=== PATIENT | male | born 1985 | race Caucasian/White ===

== ENCOUNTER 2016-09-29 14:17 | Inpatient (IN) | payer OTHER ==
[2016-09-29 15:56] VITALS: BMI 24.2
--- NOTE | 2016-09-29 16:48 | HP ---
CIWA Score - CIWA Score Nausea/Vomitin-Mild Nausea/No Vomiting Muscle Tremors: 4-Moderate,w/Arms Extend Anxiety: 4-Mod. Anxious/Guarded Agitation: 4-Moderately Restless Paroxysmal Sweats: 3 Orientation: 0-Oriented Tacttile Disturbances: 0-None Auditory Disturbances: 0-None Visual Disturbances: 0-None Headache: 1-Very Mild CIWA-Ar Total Score: 17 Admission ROS BHS - HPI Chief Complaint: I need to stop using. Allergies/Adverse Reactions: Allergies Allergy/AdvReac Type Severity Reaction Status Date / Time No Known Allergies Allergy Verified 09/29/16 16:35 History of Present Illness: pt is a 31yr old male with a history of benzodiazapine dependence seeking detox for treatment. pt is also on a mmtp program received 60mg last dose received today. pending verification Exam Limitations: No Limitations - Ebola screening Have you traveled outside of the country in the last 21 days: No Have you had contact with anyone from an Ebola affected area: No Have you been sick,other than usual withdrawal symptoms: No Do you have a fever: No - Review of Systems Constitutional: Chills, Diaphoresis, Loss of Appetite, Night Sweats, Changes in sleep, Unintentional Wgt. Loss EENT: reports: Tearing, Nose Congestion Respiratory: reports: No Symptoms reported Cardiac: reports: No Symptoms Reported GI: reports: Constipated, Nausea, Poor Fluid Intake, Indigestion : reports: No Symptoms Reported Musculoskeletal: reports: No Symptoms Reported, Back Pain, Joint Pain Integumentary: reports: Flushing, Sweating Neuro: reports: Headache, Seizure (last seizure a year ago.), Tingling, Tremors , Dizziness Endocrine: reports: Excessive Sweating, Flushing, Intolerance to Cold, Intolerance to Heat Hematology: reports: No Symptoms Reported Psychiatric: reports: Judgement Intact, Mood/Affect Appropiate, Orientated x3, Agitated, Anxious Other Systems: Reviewed and Negative Patient History - Patient Medical History Hx Anemia: No Hx Asthma: No Hx Chronic Obstructive Pulmonary Disease (COPD): No Hx Cancer: No Hx Cardiac Disorders: No Hx Congestive Heart Failure: No Hx Hypertension: No Hx Hypercholesterolemia: No Hx Pacemaker: No HX Cerebrovascular Accident: No Hx Seizures: Yes (over a year ago) Hx Dementia: No Hx Diabetes: No Hx Gastrointestinal Disorders: No Hx Liver Disease: No Hx Genitourinary Disorders: No Hx Sexually Transmitted Disorders: No Hx Renal Disease (ESRD): No Hx Thyroid Disease: No Hx Human Immunodeficiency Virus (HIV): No (negative) Hx Hepatitis C: No (negative) Hx Depression: No Hx Suicide Attempt: No (denies) Hx Bipolar Disorder: Yes Hx Schizophrenia: No - Patient Surgical History Past Surgical History: Yes Other Surgical History: tonsilectomy - PPD History Previous Implant?: Yes Documented Results: Negative w/o proof PPD to be Administered?: Yes - Reproductive History Patient is a Female of Child Bearing Age (11 -55 yrs old): No - Smoking Cessation Smoking history: Current every day smoker Have you smoked in the past 12 months: Yes Aproximately how many cigarettes per day: 10 Hx Chewing Tobacco Use: No Initiated information on smoking cessation: Yes 'Breaking Loose' booklet given: 09/29/16 - Substance & Tx. History Hx Alcohol Use: No Hx Substance Use: Yes Substance Use Type: Tranquilizers Hx Substance Use Treatment: Yes - Substances Abused Xanax Route: Oral Frequency: Daily Amount used: 8 mg. Age of first use: 26 Date of Last Use: 09/29/16 Family Disease History - Family Disease History Family Disease History: Diabetes: Grandparent, [place]: Father Admission Physical Exam S - Vital Signs Vital Signs: Vital Signs - 24 hr 09/29/16 15:54 Temperature 97.1 F L Pulse Rate 92 H Respiratory 18 Rate Blood Pressure 117/73 - Physical General Appearance: Yes: Appropriately Dressed, Moderate Distress, Thin, Tremorous, Irritable, Sweating, Anxious HEENTM: Yes: Normal Voice, Nasal Congestion, Rhinorrhea Respiratory: Yes: Lungs Clear, Normal Breath Sounds, No Respiratory Distress Neck: Yes: No masses,lesions,Nodules Breast: Yes: Within Normal Limits Cardiology: Yes: Regular Rhythm, Regular Rate, S1, S2 Abdominal: Yes: Normal Bowel Sounds, Non Tender, Soft Genitourinary: Yes: Within Normal Limits Back: Yes: Normal Inspection Musculoskeletal: Yes: full range of Motion Extremities: Yes: Normal Capillary Refill, Normal Inspection, Non-Tender, Tremors Neurological: Yes: Fully Oriented, Alert, Normal Response Integumentary: Yes: Normal Color, Diaphoresis, Track [place] Lymphatic: Yes: Within Normal Limits - Diagnostic (1) Sedative, hypnotic or anxiolytic dependence with withdrawal, uncomplicated Current Visit: Yes Status: Chronic (2) Methadone maintenance therapy patient Current Visit: Yes Status: Chronic Comment: last dose reiceved today 60mg pending verification (3) Nicotine dependence Current Visit: Yes Status: Chronic Qualifiers: Nicotine product type: cigarettes Substance use status: uncomplicated Qualified Code(s): F17.210 - Nicotine dependence, cigarettes, uncomplicated Cleared for Admission [facility] - Detox or Rehab [facility] Level of Care: Medically Managed Detox Regimen/Protocol: Valium S Breath Alcohol Content Breath Alcohol Content: 0 Urine Drug Screen - Results Drug Screen Negative: No Urine Drug Screen Results: CAROLYN-Cocaine, OPI-Opiates, BAR-Barbiturates, BZO- Benzodiazepines, MTD-Methadone, TCA-Tricyclic Antidepress, OXY-Oxycodone
[2016-09-29] MEDS ORDERED: MAGNESIUM CITRATE 300 ML BOTTLE PO PRN (16:57)
[2016-09-29] MEDS ORDERED: IBUPROFEN 400 MG TABLET (FP) PO PRN (16:57)
[2016-09-29] MEDS ORDERED: MENTHOL/PHENOL 1 EACH UD MM PRN (16:57)
[2016-09-29] MEDS ORDERED: MAGNESIUM HYDROX 2400MG/30ML ORAL SUSPENSION 30 ML CUP PO PRN (16:57)
[2016-09-29] MEDS ORDERED: LOPERAMIDE HCL 2 MG CAPSULE PO PRN (16:57)
[2016-09-29] MEDS ORDERED: P-EPHED 60MG/TRIPROLIDI 2.5MG TABLET PO PRN (16:57)
[2016-09-29] MEDS ORDERED: guaiFENesin/D-METHORPHAN HB 10 ML UNIT-DOSE CUPS PO PRN (16:57)
[2016-09-29] MEDS ORDERED: hydrOXYzine PAMOATE 50 MG CAPSULE (FP) PO PRN (16:57)
[2016-09-29] MEDS ORDERED: MAG HYDROX/AL HYDROX/SIMETH 30 ML UNIT-DOSE CUP PO PRN (16:57)
[2016-09-29] MEDS ORDERED: NICOTINE POLACRILEX 4 MG GUM BC PRN (16:57)
[2016-09-29] MEDS ORDERED: ACETAMINOPHEN 325 MG TABLET (FP) PO PRN (16:57)
[2016-09-29] MEDS ORDERED: diazePAM 5 MG TABLET PO ONE (18:00)
[2016-09-29] MEDS: THIAMINE HCL 100 MG TABLET (FP) PO SCH (22:26)
[2016-09-29] MEDS: diazePAM 5 MG TABLET PO SCH (22:26)
[2016-09-30 03:04] LABS: URINE APPEARANCE SLCLOUDY; URINE BILIRUBIN NEGATIVE (NEGATIVE); URINE BLOOD NEGATIVE (NEGATIVE); URINE COLOR AMBER; URINE GLUCOSE (UA) NEGATIVE (NEGATIVE); URINE KETONE TRACE (NEGATIVE); URINE LEUK ESTERASE NEGATIVE (NEGATIVE); URINE NITRITE NEGATIVE (NEGATIVE); URINE UROBILINOGEN NEGATIVE E.U./dl (0.2-1.0)
[2016-09-30 03:30] LABS: URINE PROTEIN 1+ (NEGATIVE)
[2016-09-30 03:41] LABS: CALCIUM OXALATE CRYSTALS FEW /hpf (NONE SEEN); URINE HYALINE CAST 16 /lpf; URINE MUCUS MANY; URINE RBC 1 /hpf (0-3); URINE WBC 2 /hpf (3-5)
[2016-09-30] MEDS: diazePAM 5 MG TABLET PO SCH ×3 (05:50→22:07)
[2016-09-30] MEDS ORDERED: METHADONE HCL 10 MG TABLET PO ONE (10:03)
[2016-09-30] MEDS: PRENATAL VITAMINS W/ FOLIC ACID TABLET (FP) PO SCH (10:04)
[2016-09-30] MEDS: diazePAM 5 MG TABLET PO PRN (10:04)
[2016-09-30] MEDS: NICOTINE 21 MG/24 HOURS TOPICAL PATCH TD SCH (10:07)
[2016-09-30] MEDS ORDERED: METHADONE 40 MG, METHADONE 20 MG PO ONE (10:45)
[2016-09-30] MEDS ORDERED: METHADONE HCL 10 MG TABLET ONE (11:06)
[2016-09-30] MEDS ORDERED: METHADONE HCL 40 MG DISPERSABLE TABLET ONE (11:07)
[2016-09-30 11:13] LABS: ANION GAP 8 (8-16); CALCIUM 9.1 mg/dL (8.5-10.1); CO2 28 mmol/L (21-32); GLUCOSE,RANDOM 95 mg/dL (74-106); MCH 30.3 pg (25.7-33.7); MCHC 34.3 g/dl (32.0-35.9); MEAN CELL VOLUME 88.5 fl (80-96); MEAN PLT VOLUME 7.9 fl (7.5-11.1); PLATELET COUNT 238 K/MM3 (134-434); RDW 12.7 % (11.9-15.9); WHITE BLOOD COUNT 4.1 K/mm3 (4.0-10.0)
--- NOTE | 2016-09-30 11:14 | PN ---
S CIWA - CIWA Score Nausea/Vomitin Muscle Tremors: 3 Anxiety: 3 Agitation: 2 Paroxysmal Sweats: 1-Minimal Palms Moist Orientation: 0-Oriented Tacttile Disturbances: 1-Very Mild Itch/Numbness Auditory Disturbances: 1-Very Mild Visual Disturbances: 1-Very Mild Sensitivity Headache: 2-Mild CIWA-Ar Total Score: 17 BHS Progress Note (SOAP) Subjective: ALERT,IRRITABLE,ANXIOUS,INTERRUPTED SLEEP,TREMOR,PAIN IN THE BODY AND BACK Objective: 09/30/16 11:14 Vital Signs Temperature 97.7 F 09/30/16 09:40 Pulse Rate 75 09/30/16 09:40 Respiratory Rate 16 09/30/16 09:40 Blood Pressure 128/74 09/30/16 09:40 O2 Sat by Pulse Oximetry (%) EKG NSR WITH SINUS ARRHYTHMIA Laboratory Last Values Urine Color Clair 09/29/16 23:06 Urine Appearance Slcloudy 09/29/16 23:06 Urine pH 5.0 (5.0-8.0) 09/29/16 23:06 Ur Specific [place] 1.030 (1.001-1.035) 09/29/16 23:06 Urine Protein 1+ (NEGATIVE) H 09/29/16 23:06 Urine Glucose (UA) Negative (NEGATIVE) 09/29/16 23:06 Urine Ketones Trace (NEGATIVE) H 09/29/16 23:06 Urine Blood Negative (NEGATIVE) 09/29/16 23:06 Urine Nitrite Negative (NEGATIVE) 09/29/16 23:06 Urine Bilirubin Negative (NEGATIVE) 09/29/16 23:06 Urine Urobilinogen Negative E.U./dl (0.2-1.0) 09/29/16 23:06 Ur Leukocyte Esterase Negative (NEGATIVE) 09/29/16 23:06 Urine RBC 1 /hpf (0-3) 09/29/16 23:06 Urine WBC 2 /hpf (3-5) 09/29/16 23:06 Ur Epithelial Cells Rare /hpf (FEW) 09/29/16 23:06 Calcium Oxalate Crystal Few /hpf (NONE SEEN) 09/29/16 23:06 Hyaline Casts 16 /lpf 09/29/16 23:06 Urine Mucus Many 09/29/16 23:06 LABS PENDING Assessment: 09/30/16 11:15 WITHDRAWAL SYMPTOM Plan: CONTINUE DETOX
[2016-09-30 11:16] LABS: ALK PHOS 59 U/L (45-117); BILIRUBIN,TOTAL 0.3 mg/dL (0.2-1.0); CREATININE 0.9 mg/dL (0.7-1.3); SGOT/AST 18 U/L (15-37); SGPT/ALT 25 U/L (12-78); TOT PROT 6.8 g/dl (6.4-8.2)
[2016-09-30 12:52] LABS: HIV 1 & 2 AB NEGATIVE; HIV 1 AGp24 NEGATIVE
--- NOTE | 2016-09-30 13:39 | EKG ---
Test Reason : Blood Pressure : / mmHG Vent. Rate : 062 BPM Atrial Rate : 062 BPM P-R Int : 172 ms QRS Dur : 098 ms QT Int : 442 ms P-R-T Axes : 060 063 061 degrees QTc Int : 448 ms NORMAL SINUS RHYTHM WITH SINUS ARRHYTHMIA INCOMPLETE RBBB NO PREVIOUS ECGS AVAILABLE Confirmed by DALTON DOSS MD ([id number]) on 09/30/2016 1:38:49 PM Referred By: Confirmed By:DALTON DOSS MD
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
--- NOTE | 2016-09-30 14:40 | PN ---
S Progress Note Note: Pt. claims that he takes gabapentin 600mg tid, however outside pharmacy shows gabapentin 100mg tid. We'll start him on 300mg bid & monitor
[2016-09-30] MEDS ORDERED: GABAPENTIN 300 MG CAPSULE (FP) PO ONE (14:45)
[2016-09-30] MEDS: QUEtiapine FUMARATE 50 MG TABLET PO SCH (22:07)
[2016-09-30] MEDS: THIAMINE HCL 100 MG TABLET (FP) PO SCH (22:07)
[2016-09-30] MEDS: GABAPENTIN 300 MG CAPSULE (FP) PO SCH (22:08)
[2016-10-01] MEDS ORDERED: METHADONE HCL 10 MG TABLET ONE (04:22)
[2016-10-01] MEDS ORDERED: METHADONE HCL 40 MG DISPERSABLE TABLET ONE (04:23)
[2016-10-01] MEDS: METHADONE 40 MG, METHADONE 20 MG PO SCH (05:13)
[2016-10-01] MEDS ORDERED: METHADONE HCL 10 MG TABLET PO SCH (06:00)
[2016-10-01] MEDS: PRENATAL VITAMINS W/ FOLIC ACID TABLET (FP) PO SCH (10:07)
[2016-10-01] MEDS: FLUoxetine HCL 20 MG CAPSULE (FP) PO SCH (10:07)
[2016-10-01] MEDS: diazePAM 5 MG TABLET PO SCH ×2 (10:07→22:38)
[2016-10-01] MEDS: GABAPENTIN 300 MG CAPSULE (FP) PO SCH ×2 (10:07→22:38)
[2016-10-01] MEDS: NICOTINE 21 MG/24 HOURS TOPICAL PATCH TD SCH (10:08)
--- NOTE | 2016-10-01 13:45 | PN ---
[facility] CIWA - CIWA Score Nausea/Vomitin-No Nausea/No Vomiting Muscle Tremors: 3 Anxiety: 3 Agitation: 4-Moderately Restless Paroxysmal Sweats: 3 Orientation: 0-Oriented Tacttile Disturbances: 0-None Auditory Disturbances: 0-None Visual Disturbances: 0-None Headache: 0-None Present CIWA-Ar Total Score: 13 BHS Progress Note (SOAP) Subjective: anxiety,tremors,sweating,interrupted sleep,restless Objective: 10/01/16 13:44 Vital Signs - 8 hr 10/01/16 10/01/16 06:00 10:00 Temperature 97.2 F L 97.7 F Pulse Rate 64 70 Respiratory 18 18 Rate Blood Pressure 102/61 127/71 Laboratory Tests 09/29/16 09/30/16 09/30/16 23:06 07:50 07:50 WBC 4.1 RBC 4.22 Hgb 12.8 Hct 37.3 MCV 88.5 MCHC 34.3 RDW 12.7 Plt Count 238 MPV 7.9 Sodium Potassium Chloride Carbon Dioxide Anion Gap BUN Creatinine Creat Clearance w eGFR Random Glucose Calcium Total Bilirubin AST ALT Alkaline Phosphatase Total Protein Albumin Urine Color Clair Urine Appearance Slcloudy Urine pH 5.0 Ur Specific [place] 1.030 Urine Protein 1+ H Urine Glucose (UA) Negative Urine Ketones Trace H Urine Blood Negative Urine Nitrite Negative Urine Bilirubin Negative Urine Urobilinogen Negative Ur Leukocyte Esterase Negative Urine RBC 1 Urine WBC 2 Ur Epithelial Cells Rare Calcium Oxalate Crystal Few Hyaline Casts 16 Urine Mucus Many RPR Titer HIV 1&2 Antibody Screen Negative HIV P24 Antigen Negative 09/30/16 09/30/16 07:50 07:50 WBC RBC Hgb Hct MCV MCHC RDW Plt Count MPV Sodium 142 Potassium 4.1 Chloride 106 Carbon Dioxide 28 Anion Gap 8 BUN 13 Creatinine 0.9 Creat Clearance w eGFR > 60 Random Glucose 95 Calcium 9.1 Total Bilirubin 0.3 AST 18 ALT 25 Alkaline Phosphatase 59 Total Protein 6.8 Albumin 4.0 Urine Color Urine Appearance Urine pH Ur Specific [place] Urine Protein Urine Glucose (UA) Urine Ketones Urine Blood Urine Nitrite Urine Bilirubin Urine Urobilinogen Ur Leukocyte Esterase Urine RBC Urine WBC Ur Epithelial Cells Calcium Oxalate Crystal Hyaline Casts Urine Mucus RPR Titer Nonreactive HIV 1&2 Antibody Screen HIV P24 Antigen labs noted Assessment: 10/01/16 13:44 withdrawal sx. Plan: continue detox
[2016-10-01] MEDS: diazePAM 5 MG TABLET PO PRN ×2 (13:47→19:23)
[2016-10-01] MEDS ORDERED: diphenhydrAMINE HCL 25 MG CAPSULE (FP) PO ONE (20:48)
[2016-10-01] MEDS: QUEtiapine FUMARATE 50 MG TABLET PO SCH (22:38)
[2016-10-01] MEDS: THIAMINE HCL 100 MG TABLET (FP) PO SCH (22:38)
[2016-10-01] MEDS: diphenhydrAMINE HCL 50 MG CAPSULE PO PRN (22:39)
[2016-10-02] MEDS ORDERED: METHADONE HCL 10 MG TABLET ONE (04:51)
[2016-10-02] MEDS ORDERED: METHADONE HCL 40 MG DISPERSABLE TABLET ONE (04:51)
[2016-10-02] MEDS: METHADONE 40 MG, METHADONE 20 MG PO SCH (05:16)
[2016-10-02] MEDS: diazePAM 5 MG TABLET PO PRN ×2 (08:27→16:57)
[2016-10-02] MEDS: NICOTINE 21 MG/24 HOURS TOPICAL PATCH TD SCH (10:15)
[2016-10-02] MEDS: PRENATAL VITAMINS W/ FOLIC ACID TABLET (FP) PO SCH (10:15)
[2016-10-02] MEDS: FLUoxetine HCL 20 MG CAPSULE (FP) PO SCH (10:15)
[2016-10-02] MEDS: diazePAM 5 MG TABLET PO SCH ×2 (10:15→22:24)
[2016-10-02] MEDS: GABAPENTIN 300 MG CAPSULE (FP) PO SCH ×2 (10:15→22:24)
--- NOTE | 2016-10-02 10:15 | PN ---
BHS Progress Note (SOAP) Subjective: agitation anxiety sweats Objective: 10/02/16 10:12 Vital Signs Temperature 97.9 F 10/02/16 10:00 Pulse Rate 76 10/02/16 10:00 Respiratory Rate 18 10/02/16 10:00 Blood Pressure 114/76 10/02/16 10:00 O2 Sat by Pulse Oximetry (%) awake/alert ambulating no acute distress Assessment: 10/02/16 10:14 withdrawal sx Plan: continue detox increase fluids d/c in am
[2016-10-02] MEDS: CLOTRIMAZOLE/BETAMET DIPROP TOPICAL CREAM 45 GM TUBE TP SCH ×2 (13:45→23:32)
[2016-10-02] MEDS: QUEtiapine FUMARATE 50 MG TABLET PO SCH (22:24)
[2016-10-02] MEDS: THIAMINE HCL 100 MG TABLET (FP) PO SCH (22:24)
[2016-10-02] MEDS: diphenhydrAMINE HCL 50 MG CAPSULE PO PRN (22:25)
[2016-10-03] MEDS ORDERED: METHADONE HCL 10 MG TABLET ONE (05:10)
[2016-10-03] MEDS ORDERED: METHADONE HCL 40 MG DISPERSABLE TABLET ONE (05:11)
[2016-10-03] MEDS: METHADONE 40 MG, METHADONE 20 MG PO SCH (05:27)
--- NOTE | 2016-10-03 09:10 | DS ---
[facility] Detox Discharge Summary Admission Date: 09/29/16 Discharge Date: 10/03/16 - History Present History: Cocaine Dependence, Opioid Dependence, Sedative Dependence - Physical Exam Results Vital Signs: Vital Signs Temperature 97.7 F 10/03/16 06:12 Pulse Rate 68 10/03/16 06:12 Respiratory Rate 18 10/03/16 06:12 Blood Pressure 110/69 10/03/16 06:12 O2 Sat by Pulse Oximetry (%) - Treatment Hospital Course: Detox Protocol Followed, Detoxed Safely, Responded well, Discharged Condition Good - Medication Discharge Medications: Ambulatory Orders Fluoxetine HCl [Prozac -] 20 mg PO DAILY 09/29/16 Fluoxetine HCl [Prozac] 20 mg PO DAILY #30 capsule 09/30/16 Quetiapine Fumarate [Seroquel -] 50 mg PO HS #30 tablet 09/30/16 - Diagnosis (1) Cocaine abuse Current Visit: Yes Status: Chronic (2) Nicotine dependence Current Visit: Yes Status: Chronic Qualifiers: Nicotine product type: cigarettes Substance use status: uncomplicated Qualified Code(s): F17.210 - Nicotine dependence, cigarettes, uncomplicated (3) Opioid dependence on agonist therapy Current Visit: Yes Status: Acute (4) Sedative, hypnotic or anxiolytic dependence with withdrawal, uncomplicated Current Visit: Yes Status: Chronic - AMA Did Patient Leave Against Medical Advice: No
[2016-10-03] MEDS ORDERED: diazePAM 5 MG TABLET PO SCH (10:00)
[2016-10-03 10:03] VITALS: BP 131/68; PULSE 77; TEMP 97.9
[2016-10-03] MEDS: PRENATAL VITAMINS W/ FOLIC ACID TABLET (FP) PO SCH (10:33)
[2016-10-03] MEDS: FLUoxetine HCL 20 MG CAPSULE (FP) PO SCH (10:33)
[2016-10-03] MEDS: GABAPENTIN 300 MG CAPSULE (FP) PO SCH (10:33)
[2016-10-03] MEDS: CLOTRIMAZOLE/BETAMET DIPROP TOPICAL CREAM 45 GM TUBE TP SCH (10:38)
[2016-10-03] MEDS: NICOTINE 21 MG/24 HOURS TOPICAL PATCH TD SCH (10:38)
== END 2016-10-03 12:38 | disposition other institution (70) | DRG 773 ==
LOC: YASAS 14:17 → Y6N 17:44
PROVIDERS: ADMIT Internal Medicine; ATTEND Internal Medicine
PROC: HZ2ZZZZ Detoxification Services for Substance Abuse Treatment (ICD-10-PCS; principal; 2016-10-03)
DX: F13.230 Sedative, hypnotic or anxiolytic dependence with withdrawal, uncomplicated (principal); F11.20 Opioid dependence, uncomplicated; F14.10 Cocaine abuse, uncomplicated; F17.210 Nicotine dependence, cigarettes, uncomplicated
CPT/HCPCS: 36415; 80053; 81003; 81015; 85027; 86593; 87389; 93005; 93010

== ENCOUNTER 2016-10-03 12:51 | Inpatient (IN) | payer OTHER ==
[2016-10-03] MEDS ORDERED: diphenhydrAMINE HCL 50 MG CAPSULE PO PRN (13:13)
[2016-10-03] MEDS ORDERED: P-EPHED 60MG/TRIPROLIDI 2.5MG TABLET PO PRN (13:13)
[2016-10-03] MEDS ORDERED: MENTHOL/PHENOL 1 EACH UD MM PRN (13:13)
[2016-10-03] MEDS ORDERED: MAGNESIUM CITRATE 300 ML BOTTLE PO PRN (13:13)
[2016-10-03] MEDS ORDERED: LOPERAMIDE HCL 2 MG CAPSULE PO PRN (13:13)
[2016-10-03] MEDS ORDERED: guaiFENesin/D-METHORPHAN HB 10 ML UNIT-DOSE CUPS PO PRN (13:13)
[2016-10-03] MEDS ORDERED: ACETAMINOPHEN 325 MG TABLET (FP) PO PRN (13:13)
[2016-10-03] MEDS ORDERED: MAG HYDROX/AL HYDROX/SIMETH 30 ML UNIT-DOSE CUP PO PRN (13:13)
[2016-10-03] MEDS ORDERED: IBUPROFEN 400 MG TABLET (FP) PO PRN (13:13)
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
--- NOTE | 2016-10-03 16:21 | HP ---
[facility] Re[facility] Assess/Revision - Admission History Admitted to Rehab from: [facility] [place] Date of Admission to Rehab: 10/03/16 - Findings Detox History & Physical reviewed: Yes Concur with findings: Yes Comments/Additional Findings: transferred from detox to rehab admission as per protocol
[2016-10-03] MEDS: hydrOXYzine PAMOATE 50 MG CAPSULE (FP) PO PRN ×2 (16:42→21:16)
[2016-10-03] MEDS: CLOTRIMAZOLE/BETAMET DIPROP TOPICAL CREAM 45 GM TUBE TP SCH (21:16)
[2016-10-03] MEDS: THIAMINE HCL 100 MG TABLET (FP) PO SCH (21:16)
[2016-10-03] MEDS: QUEtiapine FUMARATE 50 MG TABLET PO SCH (21:16)
[2016-10-03] MEDS: GABAPENTIN 300 MG CAPSULE (FP) PO SCH (21:16)
[2016-10-04] MEDS ORDERED: METHADONE HCL 10 MG TABLET ONE (03:09)
[2016-10-04] MEDS ORDERED: METHADONE HCL 40 MG DISPERSABLE TABLET ONE (03:09)
[2016-10-04] MEDS ORDERED: METHADONE HCL 10 MG TABLET PO SCH (06:00)
[2016-10-04] MEDS: METHADONE 40 MG, METHADONE 20 MG PO SCH (06:25)
[2016-10-04] MEDS: hydrOXYzine PAMOATE 50 MG CAPSULE (FP) PO PRN ×4 (06:27→21:15)
[2016-10-04] MEDS: CLOTRIMAZOLE/BETAMET DIPROP TOPICAL CREAM 45 GM TUBE TP SCH ×2 (09:27→21:14)
[2016-10-04] MEDS: GABAPENTIN 300 MG CAPSULE (FP) PO SCH ×2 (09:28→21:15)
[2016-10-04] MEDS: PRENATAL VITAMINS W/ FOLIC ACID TABLET (FP) PO SCH (09:28)
[2016-10-04] MEDS: FLUoxetine HCL 20 MG CAPSULE (FP) PO SCH (09:28)
[2016-10-04] MEDS: NICOTINE 21 MG/24 HOURS TOPICAL PATCH TD SCH (09:28)
[2016-10-04] MEDS: NICOTINE POLACRILEX 4 MG GUM BUC PRN ×2 (09:30→21:16)
[2016-10-04] MEDS: QUEtiapine FUMARATE 50 MG TABLET PO SCH (21:15)
[2016-10-04] MEDS: THIAMINE HCL 100 MG TABLET (FP) PO SCH (21:15)
[2016-10-05] MEDS ORDERED: METHADONE HCL 40 MG DISPERSABLE TABLET ONE (04:58)
[2016-10-05] MEDS ORDERED: METHADONE HCL 10 MG TABLET ONE (04:58)
[2016-10-05] MEDS: METHADONE 40 MG, METHADONE 20 MG PO SCH (06:22)
[2016-10-05] MEDS: hydrOXYzine PAMOATE 50 MG CAPSULE (FP) PO PRN ×3 (06:23→21:18)
[2016-10-05] MEDS: PRENATAL VITAMINS W/ FOLIC ACID TABLET (FP) PO SCH (09:24)
[2016-10-05] MEDS: FLUoxetine HCL 20 MG CAPSULE (FP) PO SCH (09:25)
[2016-10-05] MEDS: NICOTINE 21 MG/24 HOURS TOPICAL PATCH TD SCH (09:25)
[2016-10-05] MEDS: NICOTINE POLACRILEX 4 MG GUM BUC PRN ×3 (09:29→21:19)
[2016-10-05] MEDS: CLOTRIMAZOLE/BETAMET DIPROP TOPICAL CREAM 45 GM TUBE TP SCH ×2 (09:29→21:16)
[2016-10-05] MEDS: GABAPENTIN 300 MG CAPSULE (FP) PO SCH ×2 (09:54→21:18)
[2016-10-05] MEDS: THIAMINE HCL 100 MG TABLET (FP) PO SCH (21:16)
[2016-10-05] MEDS: QUEtiapine FUMARATE 50 MG TABLET PO SCH (21:16)
[2016-10-05] MEDS: MAGNESIUM HYDROX 2400MG/30ML ORAL SUSPENSION 30 ML CUP PO PRN (21:18)
[2016-10-06] MEDS ORDERED: METHADONE HCL 40 MG DISPERSABLE TABLET ONE (03:09)
[2016-10-06] MEDS ORDERED: METHADONE HCL 10 MG TABLET ONE (03:09)
[2016-10-06] MEDS: METHADONE 40 MG, METHADONE 20 MG PO SCH (06:21)
[2016-10-06] MEDS: hydrOXYzine PAMOATE 50 MG CAPSULE (FP) PO PRN ×3 (06:21→21:10)
[2016-10-06] MEDS: CLOTRIMAZOLE/BETAMET DIPROP TOPICAL CREAM 45 GM TUBE TP SCH ×2 (09:25→21:09)
[2016-10-06] MEDS: FLUoxetine HCL 20 MG CAPSULE (FP) PO SCH (09:25)
[2016-10-06] MEDS: PRENATAL VITAMINS W/ FOLIC ACID TABLET (FP) PO SCH (09:25)
[2016-10-06] MEDS: NICOTINE 21 MG/24 HOURS TOPICAL PATCH TD SCH (09:25)
[2016-10-06] MEDS: GABAPENTIN 300 MG CAPSULE (FP) PO SCH ×2 (09:25→21:09)
[2016-10-06] MEDS: NICOTINE POLACRILEX 4 MG GUM BUC PRN (09:28)
[2016-10-06] MEDS: MAGNESIUM HYDROX 2400MG/30ML ORAL SUSPENSION 30 ML CUP PO PRN (17:44)
[2016-10-06] MEDS: QUEtiapine FUMARATE 50 MG TABLET PO SCH (21:08)
[2016-10-06] MEDS: THIAMINE HCL 100 MG TABLET (FP) PO SCH (21:08)
[2016-10-07] MEDS ORDERED: METHADONE HCL 40 MG DISPERSABLE TABLET ONE (04:53)
[2016-10-07] MEDS ORDERED: METHADONE HCL 10 MG TABLET ONE (04:54)
[2016-10-07] MEDS: hydrOXYzine PAMOATE 50 MG CAPSULE (FP) PO PRN ×3 (06:43→21:12)
[2016-10-07] MEDS: METHADONE 40 MG, METHADONE 20 MG PO SCH (06:43)
[2016-10-07] MEDS: PRENATAL VITAMINS W/ FOLIC ACID TABLET (FP) PO SCH (09:26)
[2016-10-07] MEDS: FLUoxetine HCL 20 MG CAPSULE (FP) PO SCH (09:26)
[2016-10-07] MEDS: GABAPENTIN 300 MG CAPSULE (FP) PO SCH ×2 (09:26→21:12)
[2016-10-07] MEDS: CLOTRIMAZOLE/BETAMET DIPROP TOPICAL CREAM 45 GM TUBE TP SCH ×2 (09:27→21:12)
[2016-10-07] MEDS: NICOTINE 21 MG/24 HOURS TOPICAL PATCH TD SCH (09:27)
[2016-10-07] MEDS: NICOTINE POLACRILEX 4 MG GUM BUC PRN (09:28)
[2016-10-07] MEDS: MAGNESIUM HYDROX 2400MG/30ML ORAL SUSPENSION 30 ML CUP PO PRN (09:41)
[2016-10-07] MEDS: THIAMINE HCL 100 MG TABLET (FP) PO SCH (21:13)
[2016-10-07] MEDS: QUEtiapine FUMARATE 50 MG TABLET PO SCH (21:13)
[2016-10-08] MEDS ORDERED: METHADONE HCL 40 MG DISPERSABLE TABLET ONE (03:11)
[2016-10-08] MEDS ORDERED: METHADONE HCL 10 MG TABLET ONE (03:11)
[2016-10-08] MEDS: hydrOXYzine PAMOATE 50 MG CAPSULE (FP) PO PRN ×2 (06:30→21:17)
[2016-10-08] MEDS: METHADONE 40 MG, METHADONE 20 MG PO SCH (06:30)
[2016-10-08] MEDS: MAGNESIUM HYDROX 2400MG/30ML ORAL SUSPENSION 30 ML CUP PO PRN (09:48)
[2016-10-08] MEDS: CLOTRIMAZOLE/BETAMET DIPROP TOPICAL CREAM 45 GM TUBE TP SCH ×2 (09:48→21:19)
[2016-10-08] MEDS: PRENATAL VITAMINS W/ FOLIC ACID TABLET (FP) PO SCH (09:48)
[2016-10-08] MEDS: GABAPENTIN 300 MG CAPSULE (FP) PO SCH ×2 (09:49→21:18)
[2016-10-08] MEDS: NICOTINE 21 MG/24 HOURS TOPICAL PATCH TD SCH (09:49)
[2016-10-08] MEDS: FLUoxetine HCL 20 MG CAPSULE (FP) PO SCH (09:49)
[2016-10-08] MEDS: THIAMINE HCL 100 MG TABLET (FP) PO SCH (21:17)
[2016-10-08] MEDS: QUEtiapine FUMARATE 50 MG TABLET PO SCH (21:17)
[2016-10-08] MEDS: NICOTINE POLACRILEX 4 MG GUM BUC PRN (21:18)
[2016-10-09] MEDS ORDERED: METHADONE HCL 40 MG DISPERSABLE TABLET ONE (03:05)
[2016-10-09] MEDS ORDERED: METHADONE HCL 10 MG TABLET ONE (03:06)
[2016-10-09] MEDS: METHADONE 40 MG, METHADONE 20 MG PO SCH (06:33)
[2016-10-09] MEDS: hydrOXYzine PAMOATE 50 MG CAPSULE (FP) PO PRN ×3 (06:33→22:01)
[2016-10-09] MEDS: PRENATAL VITAMINS W/ FOLIC ACID TABLET (FP) PO SCH (09:19)
[2016-10-09] MEDS: FLUoxetine HCL 20 MG CAPSULE (FP) PO SCH (09:19)
[2016-10-09] MEDS: NICOTINE 21 MG/24 HOURS TOPICAL PATCH TD SCH (09:19)
[2016-10-09] MEDS: GABAPENTIN 300 MG CAPSULE (FP) PO SCH ×2 (09:19→22:00)
[2016-10-09] MEDS: CLOTRIMAZOLE/BETAMET DIPROP TOPICAL CREAM 45 GM TUBE TP SCH ×2 (09:20→22:07)
[2016-10-09] MEDS: QUEtiapine FUMARATE 50 MG TABLET PO SCH (22:00)
[2016-10-09] MEDS: THIAMINE HCL 100 MG TABLET (FP) PO SCH (22:00)
[2016-10-10] MEDS ORDERED: METHADONE HCL 40 MG DISPERSABLE TABLET ONE (03:01)
[2016-10-10] MEDS ORDERED: METHADONE HCL 10 MG TABLET ONE (03:02)
[2016-10-10] MEDS: METHADONE 40 MG, METHADONE 20 MG PO SCH (06:26)
[2016-10-10] MEDS: hydrOXYzine PAMOATE 50 MG CAPSULE (FP) PO PRN ×2 (06:28→21:34)
[2016-10-10] MEDS: PRENATAL VITAMINS W/ FOLIC ACID TABLET (FP) PO SCH (09:26)
[2016-10-10] MEDS: FLUoxetine HCL 20 MG CAPSULE (FP) PO SCH (09:26)
[2016-10-10] MEDS: NICOTINE 21 MG/24 HOURS TOPICAL PATCH TD SCH (09:26)
[2016-10-10] MEDS: GABAPENTIN 300 MG CAPSULE (FP) PO SCH ×2 (09:26→21:34)
[2016-10-10] MEDS: CLOTRIMAZOLE/BETAMET DIPROP TOPICAL CREAM 45 GM TUBE TP SCH ×2 (09:27→21:33)
[2016-10-10] MEDS: QUEtiapine FUMARATE 50 MG TABLET PO SCH (21:34)
[2016-10-10] MEDS: THIAMINE HCL 100 MG TABLET (FP) PO SCH (21:34)
[2016-10-11] MEDS ORDERED: METHADONE HCL 40 MG DISPERSABLE TABLET ONE (05:39)
[2016-10-11] MEDS ORDERED: METHADONE HCL 10 MG TABLET ONE (05:40)
[2016-10-11] MEDS: METHADONE 40 MG, METHADONE 20 MG PO SCH (06:25)
[2016-10-11] MEDS: hydrOXYzine PAMOATE 50 MG CAPSULE (FP) PO PRN ×3 (06:26→21:43)
[2016-10-11] MEDS: PRENATAL VITAMINS W/ FOLIC ACID TABLET (FP) PO SCH (09:29)
[2016-10-11] MEDS: FLUoxetine HCL 20 MG CAPSULE (FP) PO SCH (09:29)
[2016-10-11] MEDS: GABAPENTIN 300 MG CAPSULE (FP) PO SCH ×2 (09:29→21:43)
[2016-10-11] MEDS: NICOTINE 21 MG/24 HOURS TOPICAL PATCH TD SCH (09:30)
[2016-10-11] MEDS: CLOTRIMAZOLE/BETAMET DIPROP TOPICAL CREAM 45 GM TUBE TP SCH ×2 (09:30→21:43)
[2016-10-11] MEDS: NICOTINE POLACRILEX 4 MG GUM BUC PRN (09:32)
[2016-10-11] MEDS: QUEtiapine FUMARATE 50 MG TABLET PO SCH (21:43)
[2016-10-11] MEDS: THIAMINE HCL 100 MG TABLET (FP) PO SCH (21:43)
[2016-10-12] MEDS ORDERED: METHADONE HCL 40 MG DISPERSABLE TABLET ONE (04:59)
[2016-10-12] MEDS ORDERED: METHADONE HCL 10 MG TABLET ONE (05:00)
[2016-10-12] MEDS: METHADONE 40 MG, METHADONE 20 MG PO SCH (06:33)
[2016-10-12] MEDS: FLUoxetine HCL 20 MG CAPSULE (FP) PO SCH (09:28)
[2016-10-12] MEDS: PRENATAL VITAMINS W/ FOLIC ACID TABLET (FP) PO SCH (09:28)
[2016-10-12] MEDS: hydrOXYzine PAMOATE 50 MG CAPSULE (FP) PO PRN ×2 (09:28→21:21)
[2016-10-12] MEDS: GABAPENTIN 300 MG CAPSULE (FP) PO SCH ×2 (09:28→21:20)
[2016-10-12] MEDS: CLOTRIMAZOLE/BETAMET DIPROP TOPICAL CREAM 45 GM TUBE TP SCH ×2 (09:29→21:21)
[2016-10-12] MEDS: NICOTINE 21 MG/24 HOURS TOPICAL PATCH TD SCH (09:29)
[2016-10-12] MEDS: THIAMINE HCL 100 MG TABLET (FP) PO SCH (21:20)
[2016-10-12] MEDS: QUEtiapine FUMARATE 50 MG TABLET PO SCH (21:21)
[2016-10-13] MEDS ORDERED: METHADONE HCL 10 MG TABLET ONE (03:11)
[2016-10-13] MEDS ORDERED: METHADONE HCL 40 MG DISPERSABLE TABLET ONE (03:11)
[2016-10-13] MEDS: METHADONE 40 MG, METHADONE 20 MG PO SCH (06:18)
[2016-10-13] MEDS: PRENATAL VITAMINS W/ FOLIC ACID TABLET (FP) PO SCH (09:22)
[2016-10-13] MEDS: CLOTRIMAZOLE/BETAMET DIPROP TOPICAL CREAM 45 GM TUBE TP SCH ×2 (09:22→21:23)
[2016-10-13] MEDS: GABAPENTIN 300 MG CAPSULE (FP) PO SCH ×2 (09:22→21:24)
[2016-10-13] MEDS: FLUoxetine HCL 20 MG CAPSULE (FP) PO SCH (09:22)
[2016-10-13] MEDS: NICOTINE 21 MG/24 HOURS TOPICAL PATCH TD SCH (09:22)
[2016-10-13] MEDS: hydrOXYzine PAMOATE 50 MG CAPSULE (FP) PO PRN ×2 (09:23→21:24)
[2016-10-13] MEDS: QUEtiapine FUMARATE 50 MG TABLET PO SCH (21:24)
[2016-10-13] MEDS: THIAMINE HCL 100 MG TABLET (FP) PO SCH (21:24)
[2016-10-14] MEDS ORDERED: METHADONE HCL 40 MG DISPERSABLE TABLET ONE (04:07)
[2016-10-14] MEDS ORDERED: METHADONE HCL 10 MG TABLET ONE (04:07)
[2016-10-14] MEDS: METHADONE 40 MG, METHADONE 20 MG PO SCH (06:12)
[2016-10-14] MEDS: hydrOXYzine PAMOATE 50 MG CAPSULE (FP) PO PRN ×2 (09:30→21:15)
[2016-10-14] MEDS: FLUoxetine HCL 20 MG CAPSULE (FP) PO SCH (09:30)
[2016-10-14] MEDS: NICOTINE 21 MG/24 HOURS TOPICAL PATCH TD SCH (09:30)
[2016-10-14] MEDS: GABAPENTIN 300 MG CAPSULE (FP) PO SCH ×2 (09:30→21:16)
[2016-10-14] MEDS: PRENATAL VITAMINS W/ FOLIC ACID TABLET (FP) PO SCH (09:30)
[2016-10-14] MEDS: CLOTRIMAZOLE/BETAMET DIPROP TOPICAL CREAM 45 GM TUBE TP SCH ×2 (09:31→21:16)
[2016-10-14] MEDS: QUEtiapine FUMARATE 50 MG TABLET PO SCH (21:15)
[2016-10-14] MEDS: THIAMINE HCL 100 MG TABLET (FP) PO SCH (21:16)
[2016-10-15] MEDS ORDERED: METHADONE HCL 40 MG DISPERSABLE TABLET ONE (04:21)
[2016-10-15] MEDS ORDERED: METHADONE HCL 10 MG TABLET ONE (04:22)
[2016-10-15] MEDS: METHADONE 40 MG, METHADONE 20 MG PO SCH (06:35)
[2016-10-15] MEDS: PRENATAL VITAMINS W/ FOLIC ACID TABLET (FP) PO SCH (09:46)
[2016-10-15] MEDS: CLOTRIMAZOLE/BETAMET DIPROP TOPICAL CREAM 45 GM TUBE TP SCH ×2 (09:46→21:23)
[2016-10-15] MEDS: FLUoxetine HCL 20 MG CAPSULE (FP) PO SCH (09:46)
[2016-10-15] MEDS: GABAPENTIN 300 MG CAPSULE (FP) PO SCH ×2 (09:46→21:23)
[2016-10-15] MEDS: NICOTINE 21 MG/24 HOURS TOPICAL PATCH TD SCH (09:47)
[2016-10-15] MEDS: hydrOXYzine PAMOATE 50 MG CAPSULE (FP) PO PRN ×2 (09:48→21:23)
[2016-10-15] MEDS: THIAMINE HCL 100 MG TABLET (FP) PO SCH (21:23)
[2016-10-15] MEDS: QUEtiapine FUMARATE 50 MG TABLET PO SCH (21:23)
[2016-10-16] MEDS ORDERED: METHADONE HCL 40 MG DISPERSABLE TABLET ONE (05:12)
[2016-10-16] MEDS ORDERED: METHADONE HCL 10 MG TABLET ONE (05:13)
[2016-10-16] MEDS: METHADONE 40 MG, METHADONE 20 MG PO SCH (06:22)
[2016-10-16] MEDS: hydrOXYzine PAMOATE 50 MG CAPSULE (FP) PO PRN ×2 (09:25→21:35)
[2016-10-16] MEDS: PRENATAL VITAMINS W/ FOLIC ACID TABLET (FP) PO SCH (09:25)
[2016-10-16] MEDS: FLUoxetine HCL 20 MG CAPSULE (FP) PO SCH (09:25)
[2016-10-16] MEDS: GABAPENTIN 300 MG CAPSULE (FP) PO SCH ×2 (09:25→21:34)
[2016-10-16] MEDS: CLOTRIMAZOLE/BETAMET DIPROP TOPICAL CREAM 45 GM TUBE TP SCH ×2 (09:26→21:34)
[2016-10-16] MEDS: NICOTINE 21 MG/24 HOURS TOPICAL PATCH TD SCH (09:26)
[2016-10-16] MEDS: NICOTINE POLACRILEX 4 MG GUM BUC PRN (09:27)
[2016-10-16] MEDS: THIAMINE HCL 100 MG TABLET (FP) PO SCH (21:34)
[2016-10-16] MEDS: QUEtiapine FUMARATE 50 MG TABLET PO SCH (21:34)
[2016-10-17] MEDS ORDERED: METHADONE HCL 40 MG DISPERSABLE TABLET ONE (03:09)
[2016-10-17] MEDS ORDERED: METHADONE HCL 10 MG TABLET ONE (03:10)
[2016-10-17] MEDS ORDERED: METHADONE HCL 40 MG DISPERSABLE TABLET PO SCH (06:00)
[2016-10-17] MEDS: METHADONE 40 MG, METHADONE 20 MG PO SCH (06:23)
[2016-10-17] MEDS: GABAPENTIN 300 MG CAPSULE (FP) PO SCH ×2 (09:27→21:28)
[2016-10-17] MEDS: NICOTINE 21 MG/24 HOURS TOPICAL PATCH TD SCH (09:27)
[2016-10-17] MEDS: PRENATAL VITAMINS W/ FOLIC ACID TABLET (FP) PO SCH (09:27)
[2016-10-17] MEDS: FLUoxetine HCL 20 MG CAPSULE (FP) PO SCH (09:27)
[2016-10-17] MEDS: hydrOXYzine PAMOATE 50 MG CAPSULE (FP) PO PRN ×2 (09:28→21:27)
[2016-10-17] MEDS: CLOTRIMAZOLE/BETAMET DIPROP TOPICAL CREAM 45 GM TUBE TP SCH ×2 (09:31→21:28)
[2016-10-17] MEDS: QUEtiapine FUMARATE 50 MG TABLET PO SCH (21:28)
[2016-10-17] MEDS: THIAMINE HCL 100 MG TABLET (FP) PO SCH (21:28)
[2016-10-18] MEDS ORDERED: METHADONE HCL 10 MG TABLET ONE (04:16)
[2016-10-18] MEDS ORDERED: METHADONE HCL 40 MG DISPERSABLE TABLET ONE (04:17)
[2016-10-18] MEDS: METHADONE 40 MG, METHADONE 20 MG PO SCH (06:26)
[2016-10-18] MEDS: PRENATAL VITAMINS W/ FOLIC ACID TABLET (FP) PO SCH (09:34)
[2016-10-18] MEDS: GABAPENTIN 300 MG CAPSULE (FP) PO SCH ×2 (09:34→21:47)
[2016-10-18] MEDS: FLUoxetine HCL 20 MG CAPSULE (FP) PO SCH (09:34)
[2016-10-18] MEDS: CLOTRIMAZOLE/BETAMET DIPROP TOPICAL CREAM 45 GM TUBE TP SCH ×2 (09:35→21:47)
[2016-10-18] MEDS: hydrOXYzine PAMOATE 50 MG CAPSULE (FP) PO PRN ×2 (09:35→21:47)
[2016-10-18] MEDS: NICOTINE 21 MG/24 HOURS TOPICAL PATCH TD SCH (09:36)
[2016-10-18] MEDS: QUEtiapine FUMARATE 50 MG TABLET PO SCH (21:47)
[2016-10-18] MEDS: THIAMINE HCL 100 MG TABLET (FP) PO SCH (21:47)
[2016-10-19] MEDS ORDERED: METHADONE HCL 40 MG DISPERSABLE TABLET ONE (03:06)
[2016-10-19] MEDS ORDERED: METHADONE HCL 10 MG TABLET ONE (03:06)
[2016-10-19] MEDS: METHADONE 40 MG, METHADONE 20 MG PO SCH (06:26)
[2016-10-19] MEDS: NICOTINE 21 MG/24 HOURS TOPICAL PATCH TD SCH (09:38)
[2016-10-19] MEDS: hydrOXYzine PAMOATE 50 MG CAPSULE (FP) PO PRN ×2 (09:38→21:35)
[2016-10-19] MEDS: PRENATAL VITAMINS W/ FOLIC ACID TABLET (FP) PO SCH (09:38)
[2016-10-19] MEDS: FLUoxetine HCL 20 MG CAPSULE (FP) PO SCH (09:38)
[2016-10-19] MEDS: CLOTRIMAZOLE/BETAMET DIPROP TOPICAL CREAM 45 GM TUBE TP SCH ×2 (09:38→21:53)
[2016-10-19] MEDS: GABAPENTIN 300 MG CAPSULE (FP) PO SCH ×2 (09:38→21:35)
[2016-10-19] MEDS: LIDOCAINE VISCOUS 2% ORAL/TOP 20 ML UNIT-DOSE CUP MM PRN ×2 (15:34→21:36)
[2016-10-19] MEDS: QUEtiapine FUMARATE 50 MG TABLET PO SCH (21:35)
[2016-10-19] MEDS: THIAMINE HCL 100 MG TABLET (FP) PO SCH (21:35)
[2016-10-20] MEDS ORDERED: METHADONE HCL 10 MG TABLET ONE (03:04)
[2016-10-20] MEDS ORDERED: METHADONE HCL 40 MG DISPERSABLE TABLET ONE (03:05)
[2016-10-20] MEDS: METHADONE 40 MG, METHADONE 20 MG PO SCH (06:12)
[2016-10-20] MEDS: PRENATAL VITAMINS W/ FOLIC ACID TABLET (FP) PO SCH (09:39)
[2016-10-20] MEDS: hydrOXYzine PAMOATE 50 MG CAPSULE (FP) PO PRN ×3 (09:40→21:53)
[2016-10-20] MEDS: CLOTRIMAZOLE/BETAMET DIPROP TOPICAL CREAM 45 GM TUBE TP SCH ×2 (09:40→21:54)
[2016-10-20] MEDS: LIDOCAINE VISCOUS 2% ORAL/TOP 20 ML UNIT-DOSE CUP MM PRN (09:40)
[2016-10-20] MEDS: GABAPENTIN 300 MG CAPSULE (FP) PO SCH ×2 (09:40→21:53)
[2016-10-20] MEDS: FLUoxetine HCL 20 MG CAPSULE (FP) PO SCH (09:40)
[2016-10-20] MEDS: NICOTINE 21 MG/24 HOURS TOPICAL PATCH TD SCH (09:41)
[2016-10-20] MEDS: NICOTINE POLACRILEX 4 MG GUM BUC PRN (09:43)
[2016-10-20] MEDS: THIAMINE HCL 100 MG TABLET (FP) PO SCH (21:53)
[2016-10-20] MEDS: QUEtiapine FUMARATE 50 MG TABLET PO SCH (21:53)
[2016-10-21] MEDS ORDERED: METHADONE HCL 40 MG DISPERSABLE TABLET ONE (03:22)
[2016-10-21] MEDS ORDERED: METHADONE HCL 10 MG TABLET ONE (03:22)
[2016-10-21] MEDS: METHADONE 40 MG, METHADONE 20 MG PO SCH (06:29)
[2016-10-21] MEDS: FLUoxetine HCL 20 MG CAPSULE (FP) PO SCH (09:41)
[2016-10-21] MEDS: CLOTRIMAZOLE/BETAMET DIPROP TOPICAL CREAM 45 GM TUBE TP SCH ×2 (09:41→21:18)
[2016-10-21] MEDS: GABAPENTIN 300 MG CAPSULE (FP) PO SCH ×2 (09:41→21:17)
[2016-10-21] MEDS: PRENATAL VITAMINS W/ FOLIC ACID TABLET (FP) PO SCH (09:42)
[2016-10-21] MEDS: NICOTINE 21 MG/24 HOURS TOPICAL PATCH TD SCH (09:42)
[2016-10-21] MEDS: hydrOXYzine PAMOATE 50 MG CAPSULE (FP) PO PRN ×2 (09:45→21:17)
[2016-10-21] MEDS: LIDOCAINE VISCOUS 2% ORAL/TOP 20 ML UNIT-DOSE CUP MM PRN ×2 (09:45→21:17)
[2016-10-21] MEDS: THIAMINE HCL 100 MG TABLET (FP) PO SCH (21:17)
[2016-10-21] MEDS: QUEtiapine FUMARATE 50 MG TABLET PO SCH (21:17)
[2016-10-22] MEDS ORDERED: METHADONE HCL 40 MG DISPERSABLE TABLET ONE (04:41)
[2016-10-22] MEDS ORDERED: METHADONE HCL 10 MG TABLET ONE (04:41)
[2016-10-22] MEDS: METHADONE 40 MG, METHADONE 20 MG PO SCH (06:19)
[2016-10-22] MEDS: NICOTINE 21 MG/24 HOURS TOPICAL PATCH TD SCH (09:41)
[2016-10-22] MEDS: GABAPENTIN 300 MG CAPSULE (FP) PO SCH ×2 (09:41→21:10)
[2016-10-22] MEDS: FLUoxetine HCL 20 MG CAPSULE (FP) PO SCH (09:41)
[2016-10-22] MEDS: PRENATAL VITAMINS W/ FOLIC ACID TABLET (FP) PO SCH (09:41)
[2016-10-22] MEDS: CLOTRIMAZOLE/BETAMET DIPROP TOPICAL CREAM 45 GM TUBE TP SCH ×2 (09:41→21:10)
[2016-10-22] MEDS: hydrOXYzine PAMOATE 50 MG CAPSULE (FP) PO PRN ×2 (09:42→21:10)
[2016-10-22] MEDS: LIDOCAINE VISCOUS 2% ORAL/TOP 20 ML UNIT-DOSE CUP MM PRN ×2 (09:42→21:10)
[2016-10-22] MEDS: NICOTINE POLACRILEX 4 MG GUM BUC PRN (09:42)
[2016-10-22] MEDS: THIAMINE HCL 100 MG TABLET (FP) PO SCH (21:10)
[2016-10-22] MEDS: QUEtiapine FUMARATE 50 MG TABLET PO SCH (21:10)
[2016-10-23] MEDS ORDERED: METHADONE HCL 10 MG TABLET ONE (03:02)
[2016-10-23] MEDS ORDERED: METHADONE HCL 40 MG DISPERSABLE TABLET ONE (03:03)
[2016-10-23] MEDS: METHADONE 40 MG, METHADONE 20 MG PO SCH (06:33)
[2016-10-23 07:15] VITALS: BP 140/79; PULSE 77; TEMP 98.1
[2016-10-23] MEDS: LIDOCAINE VISCOUS 2% ORAL/TOP 20 ML UNIT-DOSE CUP MM PRN (08:43)
[2016-10-23] MEDS: FLUoxetine HCL 20 MG CAPSULE (FP) PO SCH (09:31)
[2016-10-23] MEDS: hydrOXYzine PAMOATE 50 MG CAPSULE (FP) PO PRN (09:31)
[2016-10-23] MEDS: PRENATAL VITAMINS W/ FOLIC ACID TABLET (FP) PO SCH (09:31)
[2016-10-23] MEDS: GABAPENTIN 300 MG CAPSULE (FP) PO SCH (09:32)
[2016-10-23] MEDS: CLOTRIMAZOLE/BETAMET DIPROP TOPICAL CREAM 45 GM TUBE TP SCH (09:32)
[2016-10-23] MEDS: NICOTINE 21 MG/24 HOURS TOPICAL PATCH TD SCH (09:32)
--- NOTE | 2016-10-23 12:51 | PN ---
Psychiatric Progress Note Vital Signs: Vital Signs Period Temp Pulse Resp BP Sys/Narayanan Pulse Ox Last 24 Hr 98.1 F 77 16-18 140/79 Date of Session: 10/23/16 Chief Complaint:: discharge HPI: Patient is a 31 year old with anxiolitic , nicotine dependence comorbid MDD. ROS: WNL Current Side Effect: No Lab tests ordered: No Lab tests reviewed: Yes Provider note:: Patient was addischarged today as was decided by a team meeting due to inappropriate behavior. Patient was seen and evaluated, patient is stable for discharge, scripts provided. MSE completed. Total face to face time:: 15 Mental Status Exam - Mental Status Exam Alert and Oriented to: Time, Place, Person Cognitive Function: Grossly Intact Patient Appearance: Well Groomed Affect: Appropriate, Mood Congruent Patient Behavior: Appropriate, Cooperative Speech Pattern: Clear, Appropriate Voice Loudness: Normal Thought Process: Intact Thought Disorder: Not Present Hallucinations: Denies Suicidal Ideation: Denies Homicidal Ideation: Denies Insight/Judgement: Fair Sleep: Fair Appetite: Fair Muscle strength/Tone: Normal Gait/Station: Normal Psychiatric Treatment Plan - Problem List (1) Nicotine dependence Qualifiers: Nicotine product type: cigarettes Substance use status: uncomplicated Qualified Code(s): F17.210 - Nicotine dependence, cigarettes, uncomplicated
== END 2016-10-23 10:00 | disposition home or self-care (01) | DRG 772 ==
LOC: YASAS 12:51 → Y5N 12:52
PROVIDERS: ADMIT Psychiatry & Neurology Psychiatry; ATTEND Psychiatry & Neurology Psychiatry
PROC: HZ42ZZZ Group Counseling for Substance Abuse Treatment, Cognitive-Behavioral (ICD-10-PCS; principal; 2016-10-03)
DX: F13.20 Sedative, hypnotic or anxiolytic dependence, uncomplicated (principal); F17.210 Nicotine dependence, cigarettes, uncomplicated; F33.9 Major depressive disorder, recurrent, unspecified; Z86.69 Personal history of other diseases of the nervous system and sense organs

== ENCOUNTER 2018-03-27 12:40 | Inpatient (IN) | payer OTHER ==
[2018-03-27 19:29] VITALS: BMI 22.4
--- NOTE | 2018-03-27 20:26 | HP ---
COWS - Scale Resting Pulse: 0= IN 80 or Below Sweatin= Chills/Flushing Restless Observation: 1= Difficult to Sit Still Pupil Size: 1= Pupils >than Normal Bone or Joint Aches: 1= Mild Discomfort Runny Nose/ Eye Tearin= Constantly Teary/Runny GI Upset > 30mins: 1= Stomach Cramp Tremor Observation: 1= Tremor [place], Not Seen Yawning Observation: 2= >3x During Session Anxiety or Irritability: 1=Feels Anxious/Irritable Goose Flesh Skin: 3=Piloerection COWS Score: 16 Admission ROS S - HPI Chief Complaint: opioid withdrawal symptoms Allergies/Adverse Reactions: Allergies Allergy/AdvReac Type Severity Reaction Status Date / Time No Known Allergies Allergy Verified 10/03/16 13:49 History of Present Illness: 33 yo male with hx of heroin (IV), nicotine, cocaine, marijuana dependence is here seeking detox. Last detox at [facility] one month ago. PMHX: Herniated disc, and anxiety. Denies suicidal / homicidal ideation or hx of suicide attempts. Hx of overdose x4 with last episode x 3 months. Reports hx of seizure related to benzo withdrawal, last episode three years ago. Longest period of sobriety 5 months. Exam Limitations: No Limitations - Ebola screening Have you traveled outside of the country in the last 21 days: No Have you had contact with anyone from an Ebola affected area: No Do you have a fever: No - Review of Systems Constitutional: Chills, Diaphoresis, Changes in sleep, Unintentional Wgt. Loss ( 40 lbs) EENT: reports: No Symptoms Reported Respiratory: reports: No Symptoms reported Cardiac: reports: No Symptoms Reported GI: reports: Constipated (last BM this morning), Poor Appetite, Poor Fluid Intake, Abdominal cramping : reports: No Symptoms Reported Musculoskeletal: reports: Back Pain (low back) Integumentary: reports: No Symptoms Reported Neuro: reports: See HPI Endocrine: reports: Increased Thirst Hematology: reports: No Symptoms Reported Psychiatric: reports: Orientated x3, Anxious Other Systems: Reviewed and Negative Patient History - Patient Medical History Hx Anemia: No Hx Asthma: No Hx Chronic Obstructive Pulmonary Disease (COPD): No Hx Cancer: No Hx Cardiac Disorders: No Hx Congestive Heart Failure: No Hx Hypertension: No Hx Hypercholesterolemia: No Hx Pacemaker: No HX Cerebrovascular Accident: No Hx Seizures: Yes (BZO withdrawals) Hx Dementia: No Hx Diabetes: No Hx Gastrointestinal Disorders: No Hx Liver Disease: No Hx Genitourinary Disorders: No Hx Sexually Transmitted Disorders: No Hx Renal Disease (ESRD): No Hx Thyroid Disease: No Hx Human Immunodeficiency Virus (HIV): No (negative, last tested one month ago ) Hx Hepatitis C: No (negative) Hx Depression: No Hx Suicide Attempt: No Hx Bipolar Disorder: Yes Hx Schizophrenia: No - Patient Surgical History Past Surgical History: Yes Hx Neurologic Surgery: No Hx Cataract Extraction: No Hx Cardiac Surgery: No Hx Lung Surgery: No Hx Breast Surgery: No Hx Breast Biopsy: No Hx Abdominal Surgery: No Hx Appendectomy: No Hx Cholecystectomy: No Hx Genitourinary Surgery: No Hx Section: No Hx Orthopedic Surgery: No Other Surgical History: tonsilectomy AND BOTH EYE LASER SURGERY IN 1993 Anesthesia Reaction: No - PPD History Previous Implant?: No Documented Results: Negative w/proof Date: 10/01/16 Results: 0 MM PPD to be Administered?: Yes - Smoking Cessation Smoking history: Current every day smoker Have you smoked in the past 12 months: Yes Aproximately how many cigarettes per day: 20 Hx Chewing Tobacco Use: No Initiated information on smoking cessation: Yes 'Breaking Loose' booklet given: 03/27/18 - Substance & Tx. History Hx Alcohol Use: No Hx Substance Use: Yes Substance Use Type: Cocaine, Heroin, Marijuana Hx Substance Use Treatment: Yes ([facility] one month ago) - Substances Abused Heroin Route: Injection Frequency: Daily Amount used: 1.5 bundle Age of first use: 27 Date of Last Use: 03/27/18 Family Disease History - Family Disease History Family Disease History: Diabetes: Grandparent, [place]: Father Admission Physical Exam BHS - Vital Signs Vital Signs: Vital Signs - 24 hr 03/27/18 19:15 Temperature 97.2 F L Pulse Rate 58 L Respiratory 16 Rate Blood Pressure 105/69 - Physical General Appearance: Yes: Disheveled, Mild Distress, Thin, Irritable, Anxious HEENTM: Yes: EOMI, Hearing grossly Normal, Normal ENT Inspection, Normocephalic , Normal Voice, MANDY, Pharynx Normal, Tm's normal Respiratory: Yes: Chest Non-Tender, Lungs Clear, Normal Breath Sounds, No Respiratory Distress, No Accessory Muscle Use Neck: Yes: Within Normal Limits Breast: Yes: Breast Exam Deferred Cardiology: Yes: Regular Rhythm, Regular Rate Abdominal: Yes: Normal Bowel Sounds, Non Tender, Flat, Soft Genitourinary: Yes: Within Normal Limits Back: Yes: Normal Inspection Musculoskeletal: Yes: Within Normal Limits, full range of Motion, Gait Steady, Pelvis Stable Extremities: Yes: Normal Capillary Refill, Normal Inspection, Normal Range of Motion, Non-Tender Neurological: Yes: process steward II-XII NML intact, Fully Oriented, Alert, Motor Strength 5/5, Depressed Affect Integumentary: Yes: Within Normal Limits, Normal Color, Warm, Diaphoresis, Track [place] (right forearm, no) - Diagnostic (1) Opioid dependence with withdrawal Current Visit: Yes Status: Acute (2) Cocaine dependence Current Visit: Yes Status: Acute Qualifiers: Substance use status: uncomplicated Qualified Code(s): F14.20 - Cocaine dependence, uncomplicated (3) Nicotine dependence Current Visit: Yes Status: Chronic Qualifiers: Nicotine product type: cigarettes Substance use status: uncomplicated Qualified Code(s): F17.210 - Nicotine dependence, cigarettes, uncomplicated (4) Marijuana dependence Current Visit: Yes Status: Acute (5) Lumbago Current Visit: Yes Status: Chronic Qualifiers: Chronicity: chronic Back pain laterality: midline Sciatica presence: without sciatica Qualified Code(s): M54.5 - Low back pain; G89.29 - Other chronic pain Cleared for Admission [facility] - Detox or Rehab [facility] Level of Care: Medically Managed Detox Regimen/Protocol: Methadone [facility] Breath Alcohol Content Breath Alcohol Content: 0 Urine Drug Screen - Results Drug Screen Negative: Yes Urine Drug Screen Results: THC-Marijuana, CAROLYN-Cocaine, OPI-Opiates, OXY- Oxycodone
[2018-03-27] MEDS ORDERED: hydrOXYzine PAMOATE 50 MG CAPSULE (FP) PO PRN (20:33)
[2018-03-27] MEDS ORDERED: MAGNESIUM CITRATE 300 ML BOTTLE PO PRN (20:33)
[2018-03-27] MEDS ORDERED: MENTHOL/PHENOL 1 EACH UD MM PRN (20:33)
[2018-03-27] MEDS ORDERED: NICOTINE POLACRILEX 2 MG GUM BUC PRN (20:33)
[2018-03-27] MEDS ORDERED: IBUPROFEN 400 MG TABLET (FP) PO PRN (20:33)
[2018-03-27] MEDS ORDERED: METHADONE HCL 10 MG TABLET (FOR DETOX USE ONLY) PO ONE ×2 (20:33→23:00)
[2018-03-27] MEDS ORDERED: MAG HYDROX/AL HYDROX/SIMETH 30 ML UNIT-DOSE CUP PO PRN (20:33)
[2018-03-27] MEDS ORDERED: MAGNESIUM HYDROX 2400MG/30ML ORAL SUSPENSION 30 ML CUP PO PRN (20:33)
[2018-03-27] MEDS ORDERED: P-EPHED 60MG/TRIPROLIDI 2.5MG TABLET PO PRN (20:33)
[2018-03-27] MEDS ORDERED: guaiFENesin/D-METHORPHAN HB 10 ML UNIT-DOSE CUPS PO PRN (20:33)
[2018-03-27] MEDS ORDERED: LOPERAMIDE HCL 2 MG CAPSULE PO PRN (20:33)
[2018-03-27] MEDS ORDERED: ACETAMINOPHEN 325 MG TABLET (FP) PO PRN (20:38)
[2018-03-27] MEDS: CYCLOBENZAPRINE HCL 5 MG TABLET PO SCH (21:20)
[2018-03-27] MEDS: diazePAM 5 MG TABLET PO PRN (21:20)
[2018-03-27] MEDS ORDERED: MELATONIN 5 MG TABLETS PO PRN (22:00)
[2018-03-27] MEDS: THIAMINE HCL 100 MG TABLET (FP) PO SCH (22:15)
[2018-03-28 02:16] LABS: URINE APPEARANCE CLEAR; URINE BILIRUBIN NEGATIVE (<2.0 mg/dL); URINE COLOR AMBER; URINE GLUCOSE (UA) NEGATIVE (NEGATIVE); URINE KETONE NEGATIVE (NEGATIVE); URINE LEUK ESTERASE NEGATIVE (NEGATIVE); URINE NITRITE NEGATIVE (NEGATIVE); URINE UROBILINOGEN NEGATIVE mg/dL (0.2-1.0)
[2018-03-28 02:24] LABS: URINE PROTEIN 1+ (NEGATIVE)
[2018-03-28 02:36] LABS: EPI CELLS RARE /HPF (FEW); URINE MUCUS MODERATE
[2018-03-28] MEDS: CYCLOBENZAPRINE HCL 5 MG TABLET PO SCH ×3 (06:11→22:16)
[2018-03-28] MEDS: diazePAM 5 MG TABLET PO PRN ×5 (06:12→22:17)
[2018-03-28] MEDS ORDERED: METHADONE HCL 10 MG TABLET (FOR DETOX USE ONLY) PO ONE (10:00)
[2018-03-28] MEDS: NICOTINE 21 MG/24 HOURS TOPICAL PATCH TD SCH (10:10)
[2018-03-28] MEDS: PRENATAL VITAMINS W/ FOLIC ACID TABLET (FP) PO SCH (10:10)
[2018-03-28 10:40] LABS: HEMATOCRIT 37.8 % (35.4-49); HEMOGLOBIN 12.9 GM/dL (11.7-16.9); MCH 29.9 pg (25.7-33.7); MCHC 34.1 g/dl (32.0-35.9); MEAN CELL VOLUME 87.5 fl (80-96); MEAN PLT VOLUME 8.3 fl (7.5-11.1); PLATELET COUNT 203 K/MM3 (134-434); RBC 4.32 M/mm3 (4.00-5.60); RDW 13.3 % (11.9-15.9); WHITE BLOOD COUNT 3.4 K/mm3 (4.0-10.0)
[2018-03-28 11:11] LABS: ALBUMIN 3.5 g/dl (3.4-5.0); ANION GAP 10 (8-16); BLOOD UREA NITROGEN 13 mg/dL (7-18); CALCIUM 8.6 mg/dL (8.5-10.1); CHLORIDE 103 mmol/L (98-107); CO2 30 mmol/L (21-32); GLUCOSE,RANDOM 99 mg/dL (74-106); POTASSIUM 4.4 mmol/L (3.5-5.1); SODIUM 143 mmol/L (136-145)
[2018-03-28 11:40] LABS: ALK PHOS 61 U/L (45-117); BILIRUBIN,TOTAL 0.4 mg/dL (0.2-1.0); SGOT/AST 18 U/L (15-37); SGPT/ALT 27 U/L (12-78); TOT PROT 6.4 g/dl (6.4-8.2)
--- NOTE | 2018-03-28 12:24 | PN ---
BHS COWS - Scale Resting Pulse: 0= [place] 80 or Below Sweatin= Chills/Flushing Restless Observation: 3= Extraneous Movement Pupil Size: 2= Moderately Dilated Bone or Joint Aches: 4=Acute Joint/Muscle Pain Runny Nose/ Eye Tearin= Runny Nose/Eyes GI Upset > 30mins: 0= None Tremor Observation of Outstretched Hands: 1= Tremor [place], Not Seen Yawning Observation: 0= None Anxiety or Irritability: 2=Irritable/Anxious Goose Flesh Skin: 0=Smooth Skin COWS Score: 15 BHS Progress Note (SOAP) Subjective: PT C/O ANXIETY,IRRITABILITY,RUNNY NOSE,HOT/COLD CHILLS,WATERY EYES,INTERMITTENT SLEEP. OOB ON HALLWAY. AMBULATING WITH STEADY GAIT. Objective: 03/28/18 12:22 Vital Signs 03/28/18 03/28/18 06:08 09:26 Temperature 97.4 F L 97 F L Pulse Rate 42 L 61 Respiratory 16 18 Rate Blood Pressure 102/61 118/68 Laboratory Tests 03/28/18 03/28/18 03/28/18 00:01 07:00 07:00 WBC 3.4 L RBC 4.32 Hgb 12.9 Hct 37.8 MCV 87.5 MCH 29.9 MCHC 34.1 RDW 13.3 Plt Count 203 MPV 8.3 Sodium 143 Potassium 4.4 Chloride 103 Carbon Dioxide 30 Anion Gap 10 BUN 13 Creatinine 1.0 Creat Clearance w eGFR > 60 Random Glucose 99 Calcium 8.6 Total Bilirubin 0.4 AST 18 ALT 27 Alkaline Phosphatase 61 Total Protein 6.4 Albumin 3.5 Urine Color Clair Urine Appearance Clear Urine pH 5.0 Ur Specific [place] 1.032 Urine Protein 1+ H Urine Glucose (UA) Negative Urine Ketones Negative Urine Blood Negative Urine Nitrite Negative Urine Bilirubin Negative Urine Urobilinogen Negative Ur Leukocyte Esterase Negative Urine WBC (Auto) 2 Urine RBC (Auto) <1 Ur Epithelial Cells Rare Urine Mucus Moderate Assessment: 03/28/18 12:23 WITHDRAWAL SX Plan: CONTINUE DETOX ACTIFED PRN DIRECTED INCREASE PO FLUIDS
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
--- NOTE | 2018-03-28 16:49 | EKG ---
Test Reason : Blood Pressure : / mmHG Vent. Rate : 053 BPM Atrial Rate : 053 BPM P-R Int : 134 ms QRS Dur : 100 ms QT Int : 466 ms P-R-T Axes : 063 069 064 degrees QTc Int : 437 ms SINUS BRADYCARDIA WITH SINUS ARRHYTHMIA OTHERWISE NORMAL ECG WHEN COMPARED WITH ECG OF 29-SEP-2016 18:27, T WAVE INVERSION NO LONGER EVIDENT IN ANTERIOR LEADS Confirmed by MARYA ADDISON, SHELLEY ([id number]) on 03/28/2018 3:51:20 PM Referred By: Confirmed By:SHELLEY MALHOTRA MD
[2018-03-28] MEDS ORDERED: ONDANSETRON *ODT* 4 MG TABLET SL PRN (17:47)
--- NOTE | 2018-03-28 17:48 | PN ---
S Progress Note Note: Vital Signs Temperature 97.7 F 03/28/18 17:46 Pulse Rate 46 L 03/28/18 17:46 Respiratory Rate 18 03/28/18 17:46 Blood Pressure 108/67 03/28/18 17:46 O2 Sat by Pulse Oximetry (%) c/o nausea and vomiting fluids as tolerated zofran prn continue to monitor
[2018-03-28] MEDS ORDERED: QUEtiapine FUMARATE 50 MG TABLET PO SCH (22:00)
[2018-03-28] MEDS: THIAMINE HCL 100 MG TABLET (FP) PO SCH (22:16)
[2018-03-29] MEDS: diazePAM 5 MG TABLET PO PRN (07:08)
[2018-03-29] MEDS: CYCLOBENZAPRINE HCL 5 MG TABLET PO SCH (07:09)
[2018-03-29] MEDS: PRENATAL VITAMINS W/ FOLIC ACID TABLET (FP) PO SCH (09:19)
[2018-03-29] MEDS: NICOTINE 21 MG/24 HOURS TOPICAL PATCH TD SCH (09:19)
[2018-03-29 09:40] VITALS: BP 125/81; PULSE 106; TEMP 98.3
[2018-03-29] MEDS ORDERED: METHADONE HCL 5 MG TABLET (FOR DETOX USE ONLY) PO ONE (10:00)
--- NOTE | 2018-03-29 13:20 | PN ---
[facility] Progress Note Note: PT APPROACHED PROVIDER AND STATED THAT HE WANTS TO LEAVE AND DOES NOT WANT O CONTINUE TREATMENT BACAUSE 10:00 AM MEDICATING TIME IS TOO LONG TO WAIT TO BE MEDICATED. PT WAS ENCOURAGED TO ALLOW STAFF TO TAKE CARE OF HIS DETOX NEEDS PER PROTOCOL AND TO VERBALIZE WHEN IN DISCOMFORT ANYTIME FOR PRN MEDS BUT PT REFUSED. COUNSELOR [employer] SPOKE TO PT BUT WITH AN UNSUCCESSFUL OUTCOME. PT IS ALERT O X 3. PT STATES HE HAS NO PMD BUT REPORTS HE CAN GO TO [facility] IN [place] WHERE HE LIVES FOR MEDICAL CARE. Vital Signs 03/29/18 03/29/18 06:08 09:39 Temperature 97.1 F L 98.3 F Pulse Rate 63 106 H Respiratory 16 16 Rate Blood Pressure 111/72 125/81 Laboratory Tests 03/28/18 03/28/18 03/28/18 00:01 07:00 07:00 WBC 3.4 L RBC 4.32 Hgb 12.9 Hct 37.8 MCV 87.5 MCH 29.9 MCHC 34.1 RDW 13.3 Plt Count 203 MPV 8.3 Sodium 143 Potassium 4.4 Chloride 103 Carbon Dioxide 30 Anion Gap 10 BUN 13 Creatinine 1.0 Creat Clearance w eGFR > 60 Random Glucose 99 Calcium 8.6 Total Bilirubin 0.4 AST 18 ALT 27 Alkaline Phosphatase 61 Total Protein 6.4 Albumin 3.5 Urine Color Clair Urine Appearance Clear Urine pH 5.0 Ur Specific [place] 1.032 Urine Protein 1+ H Urine Glucose (UA) Negative Urine Ketones Negative Urine Blood Negative Urine Nitrite Negative Urine Bilirubin Negative Urine Urobilinogen Negative Ur Leukocyte Esterase Negative Urine WBC (Auto) 2 Urine RBC (Auto) <1 Ur Epithelial Cells Rare Urine Mucus Moderate PT SIGNED OUT AMA
--- NOTE | 2018-03-29 13:23 | DS ---
[facility] Detox Discharge Summary Admission Date: 03/27/18 Discharge Date: 03/29/18 - History Present History: Cannabis Dependence, Cocaine Dependence, Opioid Dependence Additional Comments: PT SIGNED OUT AMA FOR PERSONAL REASONS. Pertinent Past History: PLEASE SEE DX BELOW - Physical Exam Results Vital Signs: Vital Signs Temperature 98.3 F 03/29/18 09:39 Pulse Rate 106 H 03/29/18 09:39 Respiratory Rate 16 03/29/18 09:39 Blood Pressure 125/81 03/29/18 09:39 O2 Sat by Pulse Oximetry (%) Pertinent Admission Physical Exam Findings: WITHDRAWAL SX Laboratory Tests 03/28/18 03/28/18 03/28/18 00:01 07:00 07:00 WBC 3.4 L RBC 4.32 Hgb 12.9 Hct 37.8 MCV 87.5 MCH 29.9 MCHC 34.1 RDW 13.3 Plt Count 203 MPV 8.3 Sodium 143 Potassium 4.4 Chloride 103 Carbon Dioxide 30 Anion Gap 10 BUN 13 Creatinine 1.0 Creat Clearance w eGFR > 60 Random Glucose 99 Calcium 8.6 Total Bilirubin 0.4 AST 18 ALT 27 Alkaline Phosphatase 61 Total Protein 6.4 Albumin 3.5 Urine Color Clair Urine Appearance Clear Urine pH 5.0 Ur Specific [place] 1.032 Urine Protein 1+ H Urine Glucose (UA) Negative Urine Ketones Negative Urine Blood Negative Urine Nitrite Negative Urine Bilirubin Negative Urine Urobilinogen Negative Ur Leukocyte Esterase Negative Urine WBC (Auto) 2 Urine RBC (Auto) <1 Ur Epithelial Cells Rare Urine Mucus Moderate - Treatment Hospital Course: Discharged Condition Good - Medication Discharge Medications: Ambulatory Orders Gabapentin 1,200 mg PO HS 03/27/18 Gabapentin [Neurontin] 600 mg PO AM 03/27/18 Naproxen 500 mg PO BID 03/27/18 - Diagnosis (1) Cocaine dependence Status: Acute Qualifiers: Substance use status: uncomplicated Qualified Code(s): F14.20 - Cocaine dependence, uncomplicated (2) Marijuana dependence Status: Acute (3) Opioid dependence with withdrawal Status: Acute (4) Nicotine dependence Status: Acute Qualifiers: Nicotine product type: cigarettes Substance use status: in withdrawal Qualified Code(s): F17.213 - Nicotine dependence, cigarettes, with withdrawal (5) Lumbago Status: Chronic Qualifiers: Chronicity: chronic Back pain laterality: midline Sciatica presence: without sciatica Qualified Code(s): M54.5 - Low back pain; G89.29 - Other chronic pain - AMA Did Patient Leave Against Medical Advice: Yes (AMA)
[2018-03-30] MEDS ORDERED: METHADONE HCL 5 MG TABLET (FOR DETOX USE ONLY) PO ONE (10:00)
[2018-03-31] MEDS ORDERED: METHADONE HCL 10 MG TABLET (FOR DETOX USE ONLY) PO ONE (10:00)
[2018-04-01] MEDS ORDERED: METHADONE HCL 5 MG TABLET (FOR DETOX USE ONLY) PO ONE (06:00)
== END 2018-03-29 09:15 | disposition left against medical advice (07) | DRG 770 ==
LOC: YASAS 12:40 → Y3N 18:31
PROVIDERS: ADMIT Surgery; ATTEND Surgery
PROC: HZ2ZZZZ Detoxification Services for Substance Abuse Treatment (ICD-10-PCS; principal; 2018-03-27)
DX: F11.23 Opioid dependence with withdrawal (principal); F14.20 Cocaine dependence, uncomplicated; F12.20 Cannabis dependence, uncomplicated; F17.213 Nicotine dependence, cigarettes, with withdrawal; F19.282 Other psychoactive substance dependence with psychoactive substance-induced sleep disorder; M54.5 Low back pain; G89.29 Other chronic pain; Z86.69 Personal history of other diseases of the nervous system and sense organs
CPT/HCPCS: 36415; 80053; 81003; 81015; 85027; 86593; 93005; 93010; Q0162